=== PATIENT | male | born 1960 | race Caucasian/White ===

== ENCOUNTER → 2019-02-02 | Day surgery (SDC) | payer MEDICAID ==
[~2019-02-02] MED LIST: Propofol 200 MG/20 ML SDV ONE; Sodium Chloride 0.9% 1,000 ML IV SCH; fentaNYL 100 MCG/2 ML SDV ONE
--- NOTE | 2019-02-02 11:29 | OR ---
DATE OF PROCEDURE: 02/02/2019 SURGEON: Fazal Ferrara MD PROCEDURE: Colonoscopy. FINDINGS: Approximately 1 cm polyp, completely removed using snare seen at 30 cm. COMPLICATIONS: None. FRAME TENDER: None. PREPROCEDURE DIAGNOSIS: Screening colonoscopy/history of colon polyps. POSTOPERATIVE DIAGNOSIS: Screening colonoscopy/history of colon polyps. RISKS: Risks, benefits, alternatives, and limitations including, but not limited to, infection, bleeding, and perforation were explained to the patient who wished to proceed. PROCEDURE IN DETAIL: The patient was placed in left lateral decubitus position. Digital rectal exam was performed without abnormality. The scope was introduced and advanced atraumatically to ileocecal valve. The scope was brought back to the ascending, transverse, descending colon, and retroflexed. No evidence of old or new blood. No diverticulosis. The polyp was completely removed. No other abnormalities on retroflex. The patient tolerated the procedure well. Fazal Ferrara MD /[id number]
== END ==
LOC: JP.SDS 06:27
PROVIDERS: ATTEND Surgery
DX: Z12.11 Encounter for screening for malignant neoplasm of colon (principal); D12.5 Benign neoplasm of sigmoid colon; K21.9 Gastro-esophageal reflux disease without esophagitis; I10 Essential (primary) hypertension; E66.9 Obesity, unspecified; Z86.010 Personal history of colon polyps; Z68.36 Body mass index [BMI] 36.0-36.9, adult
CPT/HCPCS: 45385; J2704; J3010; 88305

== ENCOUNTER 2022-04-25 06:31 | Day surgery (SDC) | payer MEDICAID, OTHER ==
[2022-04-25] MEDS ORDERED: Sodium Chloride 0.9% 1,000 ML IV SCH (07:00)
[2022-04-25] MEDS ORDERED: fentaNYL 50 MCG/ML SDV ONE (07:24)
[2022-04-25] MEDS ORDERED: Propofol 200 MG/20 ML SDV ONE ×3 (07:24→07:53)
== END 2022-04-25 09:07 | disposition home or self-care (01) ==
LOC: JP.SDS 06:31
PROVIDERS: ATTEND Surgery
DX: Z12.11 Encounter for screening for malignant neoplasm of colon (principal); D12.3 Benign neoplasm of transverse colon; I10 Essential (primary) hypertension; F17.210 Nicotine dependence, cigarettes, uncomplicated; E78.00 Pure hypercholesterolemia, unspecified; Z88.8 Allergy status to other drugs, medicaments and biological substances; Z86.010 Personal history of colon polyps; Z79.899 Other long term (current) drug therapy
CPT/HCPCS: 45380; 88305; J2704; J3010; J7030